=== PATIENT | female | born 1945 | race Caucasian/White ===

== ENCOUNTER 2018-02-18 07:20 | Day surgery (SDC) | payer MEDICARE, OTHER, SELFPAY ==
[2018-02-18 07:59] VITALS: BP 136/72; PULSE 79; RESP 18; TEMP 36.2; O2SAT 96; BMI 30.7
[2018-02-18] MEDS: SODIUM CHLORIDE 0.9% 1,000 ML 200 ML IV (08:05)
--- NOTE | 2018-02-18 08:28 | PM.HP.1 ---
History of Present Illness Date Patient Seen: 02/18/18 Time Patient Seen: 08:28 Chief complaint: colonoscopy [id number] Narrative: 72-year-old female who presents for colorectal screening. Her last colonoscopy was approximately 10 years ago. She reports that the study was normal at that time. Recently she has had no gastrointestinal symptoms such as nausea, vomiting, unintended weight loss, loss of appetite, change in bowel habits, diarrhea, constipation, melena, hematochezia, or bright red blood per rectum. She did have a brief episode lasting 24-48 hours of left lower quadrant abdominal pain which spontaneously resolved with no intervention. She has no history of diverticulitis. Currently she is at baseline with no symptoms. Patient History Medical History Hypothyroidism (Acute) Migraine headache (Acute) Osteoarthritis (Acute) Peripheral neuropathy (Acute) Surgical History History of arthroscopic knee surgery (Acute) History of carpal tunnel release (Acute) History of cataract removal with insertion of prosthetic lens (Acute) History of colonoscopy (Acute) Status post hysterectomy Status post laminectomy Status post rotator cuff repair Family & Social History Family History: Reviewed 02/18/18 by Juni Rader MD Social History: household members spouse Meds Home Medications Medication Instructions Recorded Confirmed Type vit C,Y-Hd-euzce-lutein-zeaxan 1 cap PO QDAY #0 09/11/12 02/18/18 History [Ocuvite Lutein and Zeaxanthin] levothyroxine 112 mcg PO QAM #90 tab 01/12/17 02/18/18 Rx scopolamine base [Transderm-Scop] 1 patch TD Q72H #4 patch 02/07/17 02/18/18 Rx ketoconazole 1 namrata TOPICAL BID #15 gm 03/30/17 02/18/18 Rx nystatin [Nystop] 1 applic TOPICAL BID #30 gm 03/30/17 02/18/18 Rx gabapentin [Neurontin] 300 mg TID #0 07/03/17 History estradiol 10 mcg vaginal tablet 10 mcg VAG QHS #30 tab 12/10/17 Rx jfbljtsjkt-ahbkuelziucgq-pasd 1 - 2 tab PO Q4HP PRN 02/18/18 History ibuprofen 800 mg PO TID PRN 02/18/18 02/18/18 History Allergies Allergy/AdvReac Type Severity Reaction Status Date / Time codeine [CODEINE] Allergy Intermediate itching Verified 02/18/18 08:05 Penicillins [PENICILLINS] Allergy Intermediate Rash Verified 02/18/18 08:05 povidone-iodine Allergy Intermediate rash Verified 02/18/18 08:05 [POVIDONE-IODINE] Review of Systems Review of Systems All systems reviewed & are unremarkable except as noted in HPI and below Exam Vital Signs (past 8 hours): - 02/18/18 07:59 Temperature 97.2 F L Pulse Rate 79 Respiratory Rate 18 Blood Pressure 136/72 H Pulse Oximetry 96 Oxygen Delivery Method Room Air Narrative Exam Narrative: Well-nourished well-developed female in no acute distress. Alert oriented x3 Sclera nonicteric Neck is supple Chest clear to auscultation with regular rate and rhythm. No murmurs, gallops, rubs. No crackles or wheezes. Abdomen is soft, nondistended, nontender, no masses. She has no left lower quadrant tenderness today. Extremities show no clubbing, cyanosis, or edema Objective Labs Labs: No recent laboratory or radiographic studies for review Assessment & Plan Plan: Assessment/Plan Narrative: 72-year-old female requiring colorectal screening since it has been 10 years from her prior examination. Colonoscopy is currently recommended. Technical details of the procedure were reviewed at length. Risks, benefits, alternatives were explained. Risks including but not limited to sedation, aspiration, bleeding, pain, missed lesion, incomplete examination, need for further radiographic studies, colonic perforation, need for major abdominal surgery, and all attendant risks of major surgery were explained at length. All questions were answered to her satisfaction, and she voiced understanding. Consent was placed on the chart. We will proceed as above.
--- NOTE | 2018-02-18 08:33 | P.HP_ITS ---
History of Present Illness Date Patient Seen: 02/18/18 Time Patient Seen: 08:28 Chief complaint: colonoscopy [id number] Narrative: 72-year-old female who presents for colorectal screening. Her last colonoscopy was approximately 10 years ago. She reports that the study was normal at that time. Recently she has had no gastrointestinal symptoms such as nausea, vomiting, unintended weight loss, loss of appetite, change in bowel habits, diarrhea, constipation, melena, hematochezia, or bright red blood per rectum. She did have a brief episode lasting 24-48 hours of left lower quadrant abdominal pain which spontaneously resolved with no intervention. She has no history of diverticulitis. Currently she is at baseline with no symptoms. Patient History Medical History Hypothyroidism (Acute) Migraine headache (Acute) Osteoarthritis (Acute) Peripheral neuropathy (Acute) Surgical History History of arthroscopic knee surgery (Acute) History of carpal tunnel release (Acute) History of cataract removal with insertion of prosthetic lens (Acute) History of colonoscopy (Acute) Status post hysterectomy Status post laminectomy Status post rotator cuff repair Family & Social History Family History: Reviewed 02/18/18 by Juni Rader MD Social History: household members spouse Meds Home Medications Medication Instructions Recorded Confirmed Type vit C,G-Nr-gfqoe-lutein-zeaxan 1 cap PO QDAY #0 09/11/12 02/18/18 History [Ocuvite Lutein and Zeaxanthin] levothyroxine 112 mcg PO QAM #90 tab 01/12/17 02/18/18 Rx scopolamine base [Transderm-Scop] 1 patch TD Q72H #4 patch 02/07/17 02/18/18 Rx ketoconazole 1 namrata TOPICAL BID #15 gm 03/30/17 02/18/18 Rx nystatin [Nystop] 1 applic TOPICAL BID #30 gm 03/30/17 02/18/18 Rx gabapentin [Neurontin] 300 mg TID #0 07/03/17 History estradiol 10 mcg vaginal tablet 10 mcg VAG QHS #30 tab 12/10/17 Rx huewlvtdcp-qqadzjfhcouzm-agbw 1 - 2 tab PO Q4HP PRN 02/18/18 History ibuprofen 800 mg PO TID PRN 02/18/18 02/18/18 History Allergies Allergy/AdvReac Type Severity Reaction Status Date / Time codeine [CODEINE] Allergy Intermediate itching Verified 02/18/18 08:05 Penicillins [PENICILLINS] Allergy Intermediate Rash Verified 02/18/18 08:05 povidone-iodine Allergy Intermediate rash Verified 02/18/18 08:05 [POVIDONE-IODINE] Review of Systems Review of Systems All systems reviewed & are unremarkable except as noted in HPI and below Exam Vital Signs (past 8 hours): - 02/18/18 07:59 Temperature 97.2 F L Pulse Rate 79 Respiratory Rate 18 Blood Pressure 136/72 H Pulse Oximetry 96 Oxygen Delivery Method Room Air Narrative Exam Narrative: Well-nourished well-developed female in no acute distress. Alert oriented x3 Sclera nonicteric Neck is supple Chest clear to auscultation with regular rate and rhythm. No murmurs, gallops, rubs. No crackles or wheezes. Abdomen is soft, nondistended, nontender, no masses. She has no left lower quadrant tenderness today. Extremities show no clubbing, cyanosis, or edema Objective Labs Labs: No recent laboratory or radiographic studies for review Assessment & Plan Plan: Assessment/Plan Narrative: 72-year-old female requiring colorectal screening since it has been 10 years from her prior examination. Colonoscopy is currently recommended. Technical details of the procedure were reviewed at length. Risks, benefits, alternatives were explained. Risks including but not limited to sedation, aspiration, bleeding, pain, missed lesion, incomplete examination, need for further radiographic studies, colonic perforation, need for major abdominal surgery, and all attendant risks of major surgery were explained at length. All questions were answered to her satisfaction, and she voiced understanding. Consent was placed on the chart. We will proceed as above.
--- NOTE | 2018-02-18 08:33 | PM.PREOP ---
Pre-operative Note Interval Note Pre-op Check: Yes History & Physical Reviewed by Physician, Yes Exam Performed and Yes History & Physical exam performed today by Physician Changes: No H&P completed within 30 days and has changed as indicated here:: Patient seen and examined today. History physical examination documented and placed on the chart today. We will proceed with colonoscopy today as planned. ASA Class (for procedural sedation): II
[2018-02-18] MEDS: MIDAZOLAM 5 MG/5 ML VIAL IV (08:53)
[2018-02-18] MEDS: fentaNYL 250 MCG/5 ML INJ IV (08:54)
--- NOTE | 2018-02-18 09:03 | PM.OP.ENDO ---
Operative Date/Time/Diagnoses Date of procedure: 02/18/18 Time of procedure: 09:03 Pre-op diagnosis: Colorectal screening Post-op diagnosis: other (Sigmoid diverticulosis but otherwise normal colon and rectum) Procedure & Clinicians Study performed: 1. Sedation per surgeon 2. Colonoscopy Same procedure as scheduled: Yes Indications: 72-year-old female who last underwent colorectal screening 10 years ago. She presents now for surveillance. Colonoscopy is once again recommended. Surgeon: Juni Rader Procedure Notes SCOAP/Timeout: Yes Procedure in detail: After obtaining informed consent, the patient was brought to the GI suite and placed in the left lateral decubitus position on the examination table. After placement of appropriate monitors, the patient was given incremental doses of Versed and Fentanyl until an appropriate level of sedation was achieved. A time out was held per SCOAP protocol. A digital rectal examination was performed and did not reveal any masses or obstructing lesions. The colonoscope was gently passed into the patient's anus and the entire colon navigated to the level of the cecum with minimal difficulty. Once in the cecum, the scope was withdrawn being sure to go before and beyond all mucosal folds and prominences and get an excellent examination. The findings are noted above. At the level of the rectal vault, the scope was retroflexed and the internal anal canal was examined. The scope was straightened and air aspirated from the colon. The instrument was removed from the patient's body and the procedure was concluded. The patient was allowed to awaken from sedation without difficulty and taken to the post-anesthesia care unit in good condition. Scope withdrawal time: 9:43 min Sedation minutes: 22 Findings: diverticulosis and other findings (Otherwise normal colon and rectum) Specimen(s): none sent Complications: none Recommendations: High fiber diet and Other recommendation (No further colonoscopy indicated in the absence of any new symptoms) Plan for aftercare: 1. Discharged home Follow up: as needed Disposition: PACU
[2018-02-18 09:08] VITALS: BP 134/79; PULSE 78; RESP 16; TEMP 36.5; O2SAT 96
[2018-02-18 09:11] VITALS: BP 138/77; PULSE 73; RESP 16; O2SAT 96
[2018-02-18 09:16] VITALS: BP 143/76; PULSE 80; RESP 16; O2SAT 98
[2018-02-18 09:26] VITALS: BP 160/85; PULSE 67; RESP 16; TEMP 36.2; O2SAT 97
== END 2018-02-18 09:33 ==
LOC: ENDO 07:22
PROVIDERS: Family Provider Family Medicine; PCP Family Medicine; Visit Provider Surgery
PROC: 0DJD8ZZ Inspection of Lower Intestinal Tract, Via Natural or Artificial Opening Endoscopic (ICD-10-PCS; CPT 45378; principal; 2018-02-18 08:45)
DX: Z12.11 Encounter for screening for malignant neoplasm of colon (principal); K57.30 Diverticulosis of large intestine without perforation or abscess without bleeding
CPT/HCPCS: 45378; 99152; J2250; J3010

== ENCOUNTER 2018-07-10 09:26 | Day surgery (SDC) | payer MEDICARE, OTHER, SELFPAY ==
--- NOTE | 2018-07-09 17:02 | PM.PREOP ---
Pre-operative Note Interval Note Pre-op Check: Yes History & Physical Reviewed by Physician Changes: No
[2018-07-10 10:00] VITALS: BP 157/89; PULSE 74; RESP 16; TEMP 36.2; O2SAT 98
[2018-07-10] MEDS: PROPARACAINE 0.5% OPHTH SOL 2 DROPS EYE-OP (10:05)
[2018-07-10 10:07] VITALS: BMI 30.5
[2018-07-10] MEDS: CATARACT EYE COMPOUND (10 DROPS/SYRINGE) 3 DROPS EYE-OP ×3 (10:09→10:19)
--- NOTE | 2018-07-10 10:35 | SUR.PREOP ---
Pt reports allergy to topical iodine: severe rash. Dr Bernabe notified and preop iodine eye swab not done. Dr Bernabe says will do iodine in OR and rinse off immediately. CLINICAL RNHAILEE Mishra aware.
--- NOTE | 2018-07-10 11:00 | SUR.OPER ---
Supine on eye stretcher, head on extension cradle secured with tape. Arms tucked at sides with blanket. Pillow under knees.
[2018-07-10] MEDS: PHENYLEPHRINE/LIDOCAINE VIAL (OR) 0.2 ML EYE-OP (11:04)
[2018-07-10] MEDS: MOXIFLOXACIN OPHTH DROPS 3 ML BOTTLE 2 DROPS INJ (11:04)
[2018-07-10] MEDS: TRIAMCINOLONE 50 MG/5 ML VIAL INJ (11:05)
[2018-07-10] MEDS: CARBACHOL 1.5 ML VIAL INJ (11:05)
[2018-07-10] MEDS: CHONDROIDTIN/SOD HYALURONATE 1.05 ML SYRINGE INTRAOCULA (11:05)
[2018-07-10] MEDS: BALANCED SALT IRRIG SOLN NO.2 15 ML IRRIG.SOLN IRR (11:05)
[2018-07-10] MEDS: BALANCED SALT IRRIG SOLN NO.2 500 ML, EPINEPHrine 1 MG IRR (11:06)
[2018-07-10] MEDS: TRYPAN BLUE 0.5 ML SYRINGE INJ (11:06)
[2018-07-10] MEDS: LIDOCAINE 2% 4 ML, BUPIVACAINE 0.5% (PF) 4 ML, HYALURONIDASE 150 UNIT INJ (11:07)
[2018-07-10] MEDS: LIDOCAINE 1% W/EPI INJ 20 ML INJ (11:07)
[2018-07-10] MEDS: HYALURONATE SODIUM 10 MG/ML SYRINGE INJ (11:08)
[2018-07-10] MEDS: NEOMYCIN/POLY/DEX OPHTH OINT 1 APPLIC EYE-RIGHT (11:09)
[2018-07-10] MEDS: OFLOXACIN 0.3% OPHTH 5 ML 2 DROPS EYE-RIGHT (11:09)
[2018-07-10 11:41] VITALS: BP 154/83; PULSE 67; RESP 16; TEMP 36.1; O2SAT 100
[2018-07-10 11:55] VITALS: BP 151/80; PULSE 67; RESP 15; TEMP 36.1; O2SAT 98
--- NOTE | 2018-07-10 12:43 | P.PCN_ITS ---
Procedures Date/Time Date of procedure: 07/10/18 Time of procedure: 11:00 General Procedure description: PREOPERATIVE DIAGNOSES: 1. COMPLEX SURGERY WITH USE OF CAPSULAR DYE. 2. MATURE OR ADVANCED NUCLEAR SCLEROTIC AND CORTICAL CATARACT WITH POOR VISIBILITY OF THE ANTERIOR CAPSULE INCREASING SURGICAL RISKS OF COMPLICATIONS. PREOPERATIVE DIAGNOSES: 1. ADVANCED TO MATURE NUCLEAR SCLEROTIC AND CORTICAL CATARACT. POSTOPERATIVE DIAGNOSES: 1. COMPLEX SURGERY WITH USE OF CAPSULAR DYE AND PLACEMENT OF A POSTERIOR CHAMBER INTRAOCULAR LENS IMPLANT. SURGEON: DERRICK ONEAL MD COMPLICATIONS: NONE SPECIMEN: NONE IMPLANT:zcboo+21.5 BLOOD LOSS: NONE ANESTHESIA: RETROBULBAR WITH MONITORED STANDBY. DESCRIPTION OF PROCEDURE: DICTATED BY: DERRICK ONEAL MD COPY TO: [facility] CAPSULAR DYE TO IMPROVE VISIBILITY AND SAFETY. POSTOPERATIVE DIAGNOSES: 1. CATARACT REMOVED WITH USE OF CAPSULAR DYE WITH PLACEMENT OF A POSTERIOR CHAMBER INTRAOCULAR LENS PROCEDURE: PHACOEMULSIFICATION WITH POSTERIOR CHAMBER INTRAOCULAR LENS IMPLANT SURGEON: DERRICK ONEAL MD COMPLICATIONS: NONE SPECIMEN: NONE IMPLANT: [] BLOOD LOSS: NONE ANESTHESIA: RETROBULBAR WITH MONITORED STANDBY DESCRIPTION OF PROCEDURE: PATIENT HAS PRESENTED WITH DECREASED VISION DUE TO CATARACT WHICH IS AFFECTING ACTIVITIES OF DAILY LIVING. THE PATIENT WANTS SURGERY TO IMPROVE VISION. THE PATIENT WAS TAKEN TO THE OPERATING ROOM AND GIVEN IV SEDATION. A RETROBULBAR BLOCK CONSISTING OF 6 CC OF 2% XYLOCAINE WITHOUT EPINEPHRINE MIXED HALF AND HALF WITH 0.5% MARCAINE WITH 1 CC OF HYALURONIDASE ADDED IS PLACED BETWEEN THE MEDIAL AND LATERAL 1/3 OF THE INFERIOR ORBITAL RIM. LID AKINESIA IS OBTAIN WITH 1% XYLOCAINE WITH EPINEPHRINE INFILTRATED ALONG THE LID MARGIN. THE EYE IS MANUALLY MASSAGED FOR 30 SEC, PREPPED USING BETADINE SOLUTION, AND DRAPED IN THE USUAL STERILE FASHION. TEMPORAL APPROACH WAS MADE, A 1 MM SIDE-PORT INCISION WAS PERFORMED 90 DEGREES FROM THE PLANNED CORNEAL WOUND. PHENYLEPHRINE 1.5% MIXED WITH 1% XYLOCAINE 0.2 CC WAS PLACED INTO THE ANTERIOR CHAMBER. AN AIR BUBBLE WAS PLACED AND VISUDYNE DYE WAS PLACED TO IMPROVE VISIBILITY OF THE ANTERIOR CAPSULE. THE DYE WAS IRRIGATED OUT TO REDUCE BUBBLES. VISCOAT FOLLOWED BY HEALON WAS THEN PLACED. A 2.6 MM CLEAR INCISION WITH A 2.6 MM BLADE WAS PLACED. A 360 DEGREE CAPSULORRHEXIS STYLE CAPSULOTOMY WAS THEN PERFORMED WITH A CYSTITOME NEEDLE ON A HEALON. HYDRODELINEATION AND HYDRODISSECTION WERE PERFORMED. THE PHACOEMULSIFICATION UNIT IS INTRODUCED, AND SCULPTING NOTICE USED TO GROOVE THE CENTRAL LENS. IT IS THEN REMOVED IN CHOPPING MODE. EPI NUCLEUS IS REMOVED WITH EPINUCLEAR MODE AND IRRIGATION ASPIRATION WAS USED TO REMOVE THE PERIPHERAL CORTEX. THE POSTERIOR CAPSULE IS POLISHED. THE INTRAOCULAR LENS IS SELECTED, INSPECTED, POWER CONFIRMED, AND PLACED IN THE POSTERIOR CHAMBER. THE PUPIL WAS CONSTRICTED WITH MIOSTAT. THE WOUND WAS STROMALLY HYDRATED AND TESTED FOR LEAKS , THERE WAS NONE AND WAS LEFT SUTURELESS. VIGAMOX 0.1 CC WAS PLACED INTO THE ANTERIOR CHAMBER. KENALOG 0.2 CC WAS PLACED IN THE SUPERIOR SUBCONJUNCTIVAL SPACE. A DROP OF ANTIBIOTIC AND WAS PLACED AND THE EYE WAS PATCHED AND SHIELDED. THE PATIENT WAS STABLE AND RETURNED TO THE RECOVERY ROOM IN EXCELLENT CONDITION. DICTATED BY: DERRICK ONEAL MD COPY TO: [facility]
== END 2018-07-10 12:06 | disposition home or self-care (01) ==
PROVIDERS: PCP Family Medicine; Visit Provider Ophthalmology
DX: H25.11 Age-related nuclear cataract, right eye (principal); G43.909 Migraine, unspecified, not intractable, without status migrainosus
CPT/HCPCS: J0171; J2250; J2704; J3010; J3301; J3470